=== PATIENT | female | born 1985 | race African-American/Black ===

== ENCOUNTER 2021-01-11 11:12 | Day surgery (SDC) | payer OTHER ==
[2021-01-11] MEDS ORDERED: hydrALAZINE 20 MG/ML VIAL SLOW IVP PRN (12:27)
[2021-01-11] MEDS ORDERED: Lactated Ringer's 1,000 ML IV SCH (12:45)
[2021-01-11] MEDS ORDERED: Acetaminophen 500 MG TAB PO SCH (13:15)
== END 2021-01-11 16:55 | disposition home health service (06) ==
LOC: CSHLD/OP 11:12 → EDSTATUS 12:00 → CSHLD/OP 16:55
PROVIDERS: ATTEND Family Medicine
DX: O99.891 Other specified diseases and conditions complicating pregnancy (principal); R51.9 Headache, unspecified; M79.89 Other specified soft tissue disorders; Z3A.34 34 weeks gestation of pregnancy
CPT/HCPCS: 96360; 96361; 99283

== ENCOUNTER 2022-01-12 22:22 | Observation (INO) | payer OTHER ==
[2022-01-12 22:38] VITALS: BMI 32.9
[2022-01-12] MEDS ORDERED: Acetaminophen 325 MG TAB PO PRN (23:47)
[2022-01-12] MEDS ORDERED: Metoclopramide HCl 10 MG/2 ML VIAL IVP PRN (23:55)
[2022-01-12] MEDS ORDERED: Ondansetron PF 4 MG/2 ML Vial IVP PRN (23:55)
[2022-01-13 02:08] LABS: SARS-CoV-2 NAA Rapid Test Not Detected (NotDetected)
[2022-01-13] MEDS ORDERED: GUAIFENESIN SF SOLN 200 MG/10 ML UDCUP PO PRN (10:17)
[2022-01-13] MEDS: Lactated Ringer's 1,000 ML IV SCH ×2 (10:21→12:39)
[2022-01-13] MEDS ORDERED: Oseltamivir 75 MG CAP PO SCH (10:30)
[2022-01-13] MEDS ORDERED: guaiFENesin 100 MG/5 ML UDCUP PO PRN (11:06)
[2022-01-13 11:36] VITALS: TEMP 98.3
[2022-01-13 12:13] LABS: Calc. Creatinine Clearance 170 mL/min (70-130)
[2022-01-13] MEDS ORDERED: Promethazine HCl 25 MG/ML VIAL IM PRN (13:42)
[2022-01-13] MEDS ORDERED: Ondansetron ODT 4 MG TAB SL PRN (13:44)
[2022-01-13] MEDS ORDERED: Metoclopramide HCl 10 MG TAB PO SCH (17:00)
[2022-01-13 20:16] VITALS: BP 106/64
[2022-01-14] MEDS ORDERED: Oseltamivir 75 MG CAP PO SCH (09:00)
== END 2022-01-13 20:45 | disposition home or self-care (01) ==
LOC: CSHANTE 22:22
PROVIDERS: ADMIT Obstetrics & Gynecology; ATTEND Obstetrics & Gynecology
DX: O99.511 Diseases of the respiratory system complicating pregnancy, first trimester (principal); J11.1 Influenza due to unidentified influenza virus with other respiratory manifestations; O21.2 Late vomiting of pregnancy; O99.282 Endocrine, nutritional and metabolic diseases complicating pregnancy, second trimester; E86.0 Dehydration; Z3A.24 24 weeks gestation of pregnancy; Z20.822 Contact with and (suspected) exposure to COVID-19
CPT/HCPCS: 36415; 82565; 87081; 87430; J2765; J7120; U0002

== ENCOUNTER 2022-04-20 10:55 | Outpatient (CLI) | payer OTHER | END 2022-04-20 10:56 | disposition home or self-care (01) | LOC: CSHLAB 10:55 | PROVIDERS: ATTEND Family Medicine | DX: Z20.822 Contact with and (suspected) exposure to COVID-19 (principal) | CPT/HCPCS: 87811 ==

== ENCOUNTER 2022-04-23 06:00 | Inpatient (IN) | payer OTHER ==
[2022-04-23] MEDS ORDERED: hydrALAZINE 20 MG/ML VIAL SLOW IVP PRN (18:34)
[2022-04-23] MEDS ORDERED: Ibuprofen 800 MG TAB PO PRN (18:34)
[2022-04-23] MEDS ORDERED: Diphenoxylate HCl/Atropine Tablet PO PRN (18:34)
[2022-04-23] MEDS ORDERED: Acetaminophen 500 MG TAB PO PRN (18:34)
[2022-04-23] MEDS ORDERED: Carboprost 250 MCG/ML AMP IM PRN (18:34)
[2022-04-23] MEDS ORDERED: Misoprostol 200 MCG TAB PR PRN (18:34)
[2022-04-23] MEDS ORDERED: Promethazine HCl 25 MG/ML VIAL IM PRN (18:34)
[2022-04-23] MEDS ORDERED: Lidocaine 1% (PF) 30 ML VIAL SC PRN (18:34)
[2022-04-23] MEDS ORDERED: HYDROcodone/Acetaminophen 5/325 mg Tablet PO PRN (18:34)
[2022-04-23] MEDS ORDERED: Methylergonovine 0.2 MG/ML VIAL IM PRN (18:34)
[2022-04-23] MEDS ORDERED: Ondansetron PF 4 MG/2 ML Vial IVP PRN (18:34)
[2022-04-23] MEDS ORDERED: Penicillin G Potassium 5 MILL.UNITS in Sodium Chloride 0.9% 100 ML IVPB SCH (22:00)
[2022-04-23] MEDS ORDERED: NS w/ Oxytocin 30 units 500 ML IV SCH (22:00)
[2022-04-23 22:30] VITALS: BMI 32.5
[2022-04-23] MEDS: Lactated Ringer's 1,000 ML IV SCH (23:17)
[2022-04-23 23:30] LABS: Hemoglobin 9.9 g/dL (12.0-15.5); Mean Corpuscular HGB CONC 33.3 g/dL (32.0-36.0); Mean Corpuscular Hemoglobin 29.7 pg (27.0-33.0); Mean Corpuscular Volume 89.2 fl (81.6-98.3); Mean Platelet Volume 11.9 fl (7.4-10.4); Platelet Count 186 10x3/uL (150-450); RBC Distribution Width 13.7 % (11.5-14.5); Red Blood Cell (RBC) Count 3.33 10x6/uL (3.90-5.03); White Blood Cell (WBC) Count 7.9 10x3/uL (3.5-10.5)
[2022-04-24 00:02] LABS: HBSAg Index 0.22 S/CO (0-0.99); Hep B Surf Ag Non-Reactive S/CO (NonReactive); Syphilis Antibody Nonreactive (Nonreactive); Syphilis Antibody Index 0.04 S/CO (<1.00 Non-Reactive)
[2022-04-24] MEDS ORDERED: Fentanyl 2 mcg/Bup 0.1% Cadd 100 ML ONE (00:46)
[2022-04-24] MEDS: Lactated Ringer's 1,000 ML IV SCH (00:57)
[2022-04-24] MEDS: Misoprostol 100 MCG TAB PO SCH ×2 (01:25→10:04)
[2022-04-24] MEDS ORDERED: Naloxone HCl 0.4 mg/ml Vial IVP PRN ×2 (01:49)
[2022-04-24] MEDS ORDERED: Acetaminophen 325 MG TAB PO PRN (01:49)
[2022-04-24] MEDS ORDERED: Lactated Ringer's 500 ML IV PRN (01:49)
[2022-04-24] MEDS ORDERED: ePHEDrine Sulfate 50 MG/10 ML VIAL SLOW IVP PRN (01:49)
[2022-04-24] MEDS ORDERED: Ondansetron PF 4 MG/2 ML Vial IVP PRN ×2 (01:49→06:49)
[2022-04-24] MEDS ORDERED: Moisturizing Cream (Eucerin) 113 GM JAR TOP PRN (01:49)
[2022-04-24] MEDS ORDERED: diphenhydrAMINE 50 MG/ML VIAL IVP PRN (01:49)
[2022-04-24] MEDS ORDERED: Promethazine HCl 25 MG/ML VIAL IM PRN ×2 (01:49→06:49)
[2022-04-24] MEDS ORDERED: Fentanyl 2 mcg/Bupivacaine 0.1% Cassette 100 ML EPIDURAL SCH (02:00)
[2022-04-24] MEDS ORDERED: Communication Order-Pharmacy FS SCH (02:00)
[2022-04-24] MEDS: Penicillin G 2.5 MILL.units 2.5 MILL.UNITS in Premix Bag 1 BAG IVPB SCH ×2 (03:38→10:05)
[2022-04-24] MEDS ORDERED: Bisacodyl 10 MG SUPP PR PRN (06:49)
[2022-04-24] MEDS ORDERED: Milk Of Magnesia 30 ML UDCUP PO PRN (06:49)
[2022-04-24] MEDS ORDERED: HYDROcodone/Acetaminophen 5/325 mg Tablet PO PRN (06:49)
[2022-04-24] MEDS ORDERED: hydrALAZINE 20 MG/ML VIAL SLOW IVP PRN (06:49)
[2022-04-24] MEDS ORDERED: Boostrix 0.5 ML (Tdap) VIAL IM ONE (06:49)
[2022-04-24] MEDS ORDERED: diphenhydrAMINE 25 MG CAP PO PRN (06:49)
[2022-04-24] MEDS ORDERED: Bupivacaine/Epinephrine 0.25% 30 ML VIAL ONE (08:00)
[2022-04-24] MEDS ORDERED: NS w/ Oxytocin 30 units 500 ML ONE (08:28)
[2022-04-24] MEDS: Prenatal Vitamin 1 TAB PO SCH (10:05)
[2022-04-24] MEDS: Docusate 100 MG CAP PO SCH ×2 (10:05→22:00)
[2022-04-24] MEDS: Ferrous Sulfate 325 MG TAB PO SCH ×2 (10:05→18:39)
[2022-04-24] MEDS: Ibuprofen 800 MG TAB PO SCH ×2 (12:31→22:09)
[2022-04-25] MEDS: Ibuprofen 800 MG TAB PO SCH ×2 (05:39→14:33)
[2022-04-25] MEDS: Ferrous Sulfate 325 MG TAB PO SCH ×2 (08:15→08:56)
[2022-04-25] MEDS: Prenatal Vitamin 1 TAB PO SCH (08:56)
[2022-04-25] MEDS: Docusate 100 MG CAP PO SCH (08:56)
[2022-04-25 12:31] VITALS: BP 128/78; TEMP 98.6
== END 2022-04-25 18:20 | disposition home or self-care (01) | DRG 807 ==
LOC: CSHLD 21:55 → CSHPP 04-24 08:35
PROVIDERS: ADMIT Family Medicine; ATTEND Family Medicine
PROC: 10E0XZZ Delivery of Products of Conception, External Approach (ICD-10-PCS; principal; 2022-04-24)
DX: O99.824 Streptococcus B carrier state complicating childbirth (principal); Z37.0 Single live birth; Z3A.39 39 weeks gestation of pregnancy; O69.81X0 Labor and delivery complicated by cord around neck, without compression, not applicable or unspecified
CPT/HCPCS: 51702; 85027; 86780; 86850; 86900; 86901; 87340; J0595; J2405; J2540; J2550; J2590; J3490; J7120

== ENCOUNTER 2024-01-17 17:45 | Emergency (ER) | payer OTHER ==
[2024-01-17 18:56] LABS: Bilirubin Neg (Negative); Blood, Urine Negative (Negative); Clarity Clear (Clear); Glucose, Urine (Dipstick) Normal (Negative); Ketone, Urine Negative (Negative); Leukocyte Negative (Negative); Nitrite Negative (Negative); Protein, Urine (Dipstick) Negative (Neg-Trace); Specific Gravity, Urine 1.015 (1.005-1.030); Urobilinogen Normal mg/dL (Less than 2)
[2024-01-17 18:57] LABS: Pregnancy Test - Urine (BHCG) Negative (Negative); Pregu Control Background? CLEAR/WHITE (CLR/WHITE); Pregu Control Bar Appear? YES (CONTROL BAR); Specific Gravity 1.015 (1.002-1.036)
[2024-01-17 19:09] LABS: Bacteria/HPF Rare-Few HPF (None Seen); CAUTI Indications for Culture Pelvic or flank pain; RBC/HPF None Seen HPF (0-3); Urine Culture Reflex No No; WBC/HPF 0-3 HPF (0-3)
[2024-01-17] MEDS ORDERED: Metoclopramide HCl 10 MG (2 mL) VIAL ONE (19:22)
[2024-01-17] MEDS ORDERED: Ketorolac Tromethamine 30 MG (1 mL) VIAL ONE (19:22)
[2024-01-17] MEDS ORDERED: diphenhydrAMINE 50 MG/ML VIAL ONE (19:22)
[2024-01-17 19:59] LABS: #Basophils 0.03 10x3/uL (0.0-0.2); #Eosinphils 0.02 10x3/uL (0.0-0.5); #Monocytes 0.29 10x3/uL (0.0-1.1); #Neutrophils 4.11 10x3/uL (1.5-8.4); %Basophils 0.6 % (0.0-2.0); %Eosinophils 0.4 % (0.0-6.0); %Lymphocytes 18.2 % (18.0-47.0); %Monocytes 5.3 % (0.0-10.0); %Neutrophils 75.3 % (40.0-75.0); Hematocrit 47.7 % (34.9-44.5); Hemoglobin 16.4 g/dL (12.0-15.5); Mean Corpuscular HGB CONC 34.4 g/dL (32.0-36.0); Mean Corpuscular Hemoglobin 31.3 pg (27.0-33.0); Mean Platelet Volume 10.7 fl (7.4-10.4); Platelet Count 250 10x3/uL (150-450); RBC Distribution Width 12.2 % (11.5-14.5); Red Blood Cell (RBC) Count 5.24 10x6/uL (3.90-5.03); White Blood Cell (WBC) Count 5.5 10x3/uL (3.5-10.5)
[2024-01-17 20:04] LABS: ALT (SGPT) 18 U/L (8-55); AST (SGOT) 24 U/L (5-34); Albumin 4.1 g/dL (3.5-5.0); Alkaline Phosphatase 78 U/L (40-110); Anion Gap 16 mmol/L (10-20); BUN (Urea Nitrogen) 7 mg/dL (7.0-18.7); Bilirubin, Total 0.4 mg/dL (0.2-1.2); Calc. Creatinine Clearance 0 mL/min (70-130); Calcium 9.7 mg/dL (7.8-10.44); Carbon Dioxide 20 mmol/L (22-29); Chloride 104 mmol/L (98-107); Estimated GFR 89; Glucose 95 mg/dL (70-105); Potassium 3.7 mmol/L (3.5-5.1); Protein, Total 8.1 g/dL (6.0-8.3); Sodium 136 mmol/L (136-145)
== END 2024-01-17 21:14 | disposition home or self-care (01) ==
LOC: CSHERS 17:45
DX: R51.9 Headache, unspecified (principal); E86.0 Dehydration
CPT/HCPCS: 36415; 80053; 81001; 81025; 83735; 85025; 96361; 96374; 96375; J1200; J1885; J2765

== ENCOUNTER 2024-01-30 18:43 | Emergency (ER) | payer OTHER ==
[2024-01-30] MEDS ORDERED: Ketorolac Tromethamine 30 MG (1 mL) VIAL ONE (19:57)
== END 2024-01-30 20:59 | disposition home or self-care (01) ==
LOC: CSHERS 18:43
DX: M54.50 Low back pain, unspecified (principal); V43.53XA Car driver injured in collision with pick-up truck in traffic accident, initial encounter
CPT/HCPCS: 72072; 72100; 96372; J1885

== ENCOUNTER 2025-04-03 18:09 | Emergency (ER) | payer MEDICAID ==
[2025-04-03] MEDS ORDERED: Metoclopramide HCl 10 MG (2 mL) VIAL ONE (18:41)
[2025-04-03] MEDS ORDERED: diphenhydrAMINE 50 MG/ML VIAL ONE (18:41)
[2025-04-03 18:57] LABS: #Basophils 0.07 10x3/uL (0.0-0.2); #Eosinophils Less than 0.03 10x3/uL (0.0-0.5); #Monocytes 0.55 10x3/uL (0.0-1.1); #Neutrophils 7.08 10x3/uL (1.5-8.4); %Basophils 0.8 % (0.0-2.0); %Eosinophils 0.1 % (0.0-6.0); %Lymphocytes 15.7 % (18.0-47.0); %Monocytes 6.0 % (0.0-10.0); %Neutrophils 77.1 % (40.0-75.0); Hematocrit 42.8 % (34.9-44.5); Hemoglobin 14.5 g/dL (12.0-15.5); Mean Corpuscular Hemoglobin 29.9 pg (27.0-33.0); Mean Corpuscular Volume 88.2 fL (81.6-98.3); Platelet Count 287 10x3/uL (150-450); Red Blood Cell (RBC) Count 4.85 10x6/uL (3.90-5.03); White Blood Cell (WBC) Count 9.18 10x3/uL (3.5-10.5)
[2025-04-03 19:05] LABS: BHCG - Serum Negative (NEGATIVE); Pregs Control Background? CLEAR/WHITE (CLR/WHITE); Pregs Control Bar Appear? YES (CONTROL BAR)
[2025-04-03 19:13] LABS: ALT (SGPT) 18 U/L (Less than 34); AST (SGOT) 23 U/L (11-34); Albumin 4.0 g/dL (3.1-4.5); Alkaline Phosphatase 66 U/L (40-110); Anion Gap 15 mmol/L (10-20); BUN (Urea Nitrogen) 12 mg/dL (7.0-18.7); Bilirubin, Total 0.3 mg/dL (0.3-1.2); Calc. Creatinine Clearance 0 mL/min (70-130); Calcium 9.4 mg/dL (7.8-10.44); Carbon Dioxide 21 mmol/L (22-29); Chloride 106 mmol/L (98-107); Globulin 3.8 g/dL (2.4-3.5); Glucose 101 mg/dL (70-105); Lipase 11 U/L (8-78); Magnesium 1.8 mg/dL (1.6-2.6); Potassium 3.4 mmol/L (3.5-5.1); Sodium 139 mmol/L (136-145)
[2025-04-03] MEDS ORDERED: Droperidol 5 MG/2 ML VIAL ONE (19:42)
== END 2025-04-03 20:52 | disposition home or self-care (01) ==
LOC: CSHERS 18:09
DX: R11.2 Nausea with vomiting, unspecified (principal); R19.7 Diarrhea, unspecified
CPT/HCPCS: 36415; 80053; 83690; 83735; 84703; 85025; 93005; 96361; 96374; 96375; J1200; J1790; J2765

== ENCOUNTER 2025-05-03 09:41 | Emergency (ER) | payer MEDICAID ==
[2025-05-03] MEDS ORDERED: Ketorolac Tromethamine 30 MG (1 mL) VIAL ONE (10:34)
[2025-05-03] MEDS ORDERED: Ondansetron PF 4 MG/2 ML Vial ONE (10:34)
== END 2025-05-03 11:44 | disposition home or self-care (01) ==
LOC: CSHERS 09:41
DX: R11.2 Nausea with vomiting, unspecified (principal); R50.9 Fever, unspecified; R05.9 Cough, unspecified
CPT/HCPCS: 71045; 96361; 96374; 96375; J1885; J2405

== ENCOUNTER 2025-05-30 08:08 | Emergency (ER) | payer MEDICAID ==
[2025-05-30] MEDS ORDERED: Ondansetron PF 4 MG/2 ML Vial ONE (08:47)
[2025-05-30] MEDS ORDERED: Droperidol 5 MG/2 ML VIAL ONE (09:22)
== END 2025-05-30 10:14 | disposition home or self-care (01) ==
LOC: CSHERS 08:08
DX: R11.2 Nausea with vomiting, unspecified (principal); Z55.6 Problems related to health literacy
CPT/HCPCS: 96361; 96374; 96375; J1790